=== PATIENT | female | born 1980 | race Two or more races ===

== ENCOUNTER 2025-01-22 22:15 | Emergency (ER) | payer MEDICAID, SELFPAY ==
[2025-01-22 22:16] VITALS: BMI 39.2
[2025-01-22 22:55] VITALS: BP 117/74; PULSE 84; RESP 18; TEMP 36.7; O2SAT 100
--- NOTE | 2025-01-22 23:11 | PD.EDRME ---
Rapid Medical Screening Exam RME Arrival date/time: 01/22/25 22:15 This is a case of 44-year-old female who came into the emergency room due to generalized weakness and fatigue patient denies any chest pain shortness of breath patient states that she needs blood transfusion because her hemoglobin is 6.5 Chief Complaint: General Adult/Misc Complain Time Seen by Provider: 01/22/25 22:19 Vital signs: Vital Signs Temperature 98.1 F 01/22/25 22:55 Pulse Rate 84 01/22/25 22:55 Respiratory Rate 18 01/22/25 22:55 Blood Pressure 117/74 01/22/25 22:55 Pulse Oximetry (%) 100 01/22/25 22:55 Oxygen Delivery Method Room Air 01/22/25 22:55
[2025-01-22 23:46] LABS: Basophils # (Auto) 0.1 Thou/mm3 (0.0-0.2); Basophils % (Auto) 1 % (0-2.5); Eosinophils # (Auto) 0.5 Thou/mm3 (0.0-0.5); Eosinophils % (Auto) 5 % (0-10); Hematocrit 22.8 % (36.0-46.0); Immature Granulocytes % (Auto) 0 % (0-0); Immature Granulocytes Auto 0.03 Thou/mm3 (0.00-0.00); Lymphocytes # (Auto) 2.4 Thou/mm3 (1.0-4.8); Lymphocytes % (Auto) 27 % (10-50); Mean Corpuscular HGB Conc 29.4 g/dl (31.0-37.0); Mean Corpuscular Hemoglobin 18.1 pg (25.0-35.0); Mean Corpuscular Volume 62 fL (80-100); Monocytes # (Auto) 0.7 Thou/mm3 (0.0-0.8); Monocytes % (Auto) 8 % (0-12); Neutrophils # (Auto) 5.3 Thou/mm3 (1.8-7.7); Neutrophils % (Auto) 59 % (37-80); Nucleated Red Blood Cell % 0 /100 WBC (0); Platelet Count 318 Thou/mm3 (140-440); RDW Standard Deviation 42.2 fL (36.4-46.3); Red Blood Count 3.71 Miln/mm3 (4.00-5.20)
[2025-01-22 23:52] LABS: Hemoglobin 6.7 g/dL (12.0-16.0)
[2025-01-23] VITALS (13 sets, daily range): BP systolic 98–125; BP diastolic 61–88; PULSE 58–99; RESP 14–24; TEMP 36.3–37.1; O2SAT 96–100
[2025-01-23 00:04] LABS: Alanine Aminotransferase 14 U/L (10-49); Albumin/Globulin Ratio 1.3 (1.2-2.2); Alkaline Phosphatase 82 U/L (46-116); Anion Gap 6 (7-16); Aspartate Amino Transferase 21 U/L (0-34); BUN/Creatinine Ratio 12 Ratio (12-20); Bilirubin,Total 0.3 mg/dL (0.3-1.2); Blood Urea Nitrogen 11 mg/dL (9-23); Calcium 8.3 mg/dL (8.3-10.6); Calcium (Corrected) 8.3 mg/dL (8.5-10.1); Carbon Dioxide 28.2 mMol/L (20.0-31.0); Chloride 105 mMol/L (98-107); Creatinine (Component) 0.9 mg/dL (0.6-1.3); Estimated Creatinine Clearance 102.4 mL/min (>60); Glucose 98 mg/dL (74-106); Osmolality,Calculated 276 (275-295); Potassium 3.5 mMol/L (3.4-5.1); Sodium 139 mMol/L (136-145); Troponin I < 0.002 ng/mL (0.0-0.045); eGFR > 60 See Note
[2025-01-23 00:37] LABS: Partial Thromboplastin Time 24.2 Seconds (22.0-36.0); Prothrombin Time 10.7 Seconds (9.0-12.2)
[2025-01-23 03:29] LABS: Path Review Blood Smear Sent to Pathologist
--- NOTE | 2025-01-23 04:11 | PD.EDADULT ---
ED General RME/HPI General Chief complaint: General Adult/Misc Complain Stated complaint: LOW H&H 6.3 Time Seen by Provider: 01/22/25 22:19 Arrival date/time: 01/22/25 22:15 RME / HPI RME / HPI narrative: 01/22/25 22:15 This is a case of 44-year-old female who came into the emergency room due to generalized weakness and fatigue patient denies any chest pain shortness of breath patient states that she needs blood transfusion because her hemoglobin is 6.[address] Gonzales?s Main ED Evaluation: 44yo female presents to the ED for a chief complaint of generalized weakness. Patient states she was seen at her PCP's office today and had labwork done due to her appearing pale and was told to come in due to her hemoglobin being low. Patient states she feels fatigued quite frequently . She endorses having regular heavy menses, reporting her LMP was last month. Patient reports associated chills. She denies any fever, N/V, dizziness or any other associated symptoms. Related Data Previous Rx's ?Medication ?Instructions ?Recorded naproxen 500 mg tablet (Naprosyn) 500 mg PO BID PRN pain #30 tabs 09/03/20 clindamycin HCl 150 mg capsule 450 mg (3 x 150 mg) PO TID #30 caps 09/08/20 cephalexin 500 mg capsule 500 mg PO BID #14 caps 05/14/21 doxycycline hyclate 100 mg tablet 100 mg PO BID #14 tabs 05/14/21 ibuprofen 800 mg tablet 800 mg PO Q6H PRN pain #10 tabs 05/14/21 Allergies Allergy/AdvReac Type Severity Reaction Status Date / Time No Known Allergies Allergy Verified 09/04/22 13:30 Review of Systems Review of Systems Systems Reviewed: All systems reviewed, normal except as documented Past Medical History Past Medical History CARDIAC: Negative Congestive Heart Failure RESPIRATORY: Negative Chronic Obstructive Pulmonary Disease (COPD) GENITOURINARY: Negative Renal Disease ENDOCRINE: Negative Diabetes Mellitus Type 1 or Diabetes Mellitus Type 2 HEMATOLOGIC: Positive Anemia OTHER HISTORY: Positive Blood Transfusions Social History SMOKING STATUS: Never smoker ED Exam Narrative Physical exam: GENERAL APPEARANCE: AxOx4, generally well-appearing, no acute distress. HEENT: NC, AT. MMM. EOMI, clear conjunctiva, oropharynx clear. NECK: Supple without lymphadenopathy. No stiffness or restricted ROM. HEART: Normal rate and regular rhythm, normal S1/S1, no m/r/g LUNGS: CTAB, moving air well. No crackles or wheezes are heard. ABDOMEN: Soft, nontender, nondistended with good bowel sounds heard. BACK: No midline C/T/L spine pain or deformity, No CVAT, no obvious deformity. EXTREMITIES: Without cyanosis, clubbing or edema. MUSCULOSKELETAL: FROM of all major joints, no chest tenderness NEUROLOGICAL: Grossly nonfocal. Alert and oriented, moving all 4 extremities. CN not formally tested but appear grossly intact. Skin: Warm and dry without any rash. Pallor. Course Quality Measures none Orders Category Date Time Status Transfuse,blood/blood products NOW Care 01/23/25 02:33 Active CBC Stat Lab 01/22/25 23:27 Completed CMP [Comprehensive Metabolic Panel] Stat Lab 01/22/25 23:27 Completed PTT [Partial Thromboplastin Time] Stat Lab 01/22/25 23:27 Completed Path Review Blood Smear Stat Lab 01/22/25 23:27 Completed Prothrombin Time with INR Stat Lab 01/22/25 23:27 Completed Troponin I Stat Lab 01/22/25 23:27 Completed Type and Screen Stat Lab 01/22/25 23:27 Results prbc [Red Blood Cells] Stat Lab 01/23/25 02:33 Results Vital Signs Vital signs: Vital Signs Temperature 98.1 F 01/22/25 22:55 Pulse Rate 84 01/22/25 22:55 Respiratory Rate 18 01/22/25 22:55 Blood Pressure 117/74 01/22/25 22:55 Pulse Oximetry (%) 100 01/22/25 22:55 Oxygen Delivery Method Room Air 01/22/25 22:55 Discharge Plan Plan Patient Disposition: HOME (Self Care) Prescriptions/Referrals Prescriptions/Med Rec: No Action clindamycin HCl 150 mg capsule 450 mg PO TID Qty: 30 0RF ibuprofen 800 mg tablet 800 mg PO Q6H PRN (Reason: pain) Qty: 10 0RF cephalexin 500 mg capsule 500 mg PO BID Qty: 14 0RF doxycycline hyclate 100 mg tablet 100 mg PO BID Qty: 14 0RF naproxen [Naprosyn] 500 mg tablet 500 mg PO BID PRN (Reason: pain) Qty: 30 0RF Problem List Clinical Impression: Anemia, DUB (dysfunctional uterine bleeding) Patient/Caregiver Discharge Instructions Education Materials: ED Anemia Type Not Specified, ED Dysfunctional Uterine Bleeding Additional Instructions: Follow-up your primary doctor in 2-3 days for recheck. You can return to the emergency department sooner if symptoms worsen or for any new or concerning issues. Print Language: [place]arag[place] Stand Alone Forms: Lilian Award Info., Patient Portal Info Letter MDM Narrative MDM hospital course (for use when minimal MDM required): Scribe Attestation: 01/23/25 Mariama Mendez am scribing for and in the presence of Dr. Gonzales. Clinical Information Provided by: patient Medical Records reviewed [facility] (Per chart review, patient was seen here on 09/04/22 for anemia.) Labs/Rad/Tests considered, not ordered None Chronic Illness/Social Conditions Explain: History of anemia Labs Labs: Interpreted by me Lab(s) Interpretation(s): HnH is low at 6.7/22.8, Platelets are normal, PT and INR are normal, PTT is normal, CMP is normal, Troponin is normal. Medication Administration(s) 2U pRBCs Diagnosis Differential Diagnosis ED Complaint MDM: DUB, chronic anemia, GI bleed
--- NOTE | 2025-01-23 04:45 | PC.NURSE ---
Assumed patient care at this time
--- NOTE | 2025-01-23 10:26 | PC.NURSE ---
PATIENT AWAKE AND REQUESTING FOOD. PATIENT DENIES COMPLAINT OF PAIN AT THIS TIME. SANDWICH AND JUICE GIVEN.
== END 2025-01-23 12:06 | disposition home or self-care (01) ==
LOC: SERX 01-23 05:52
PROVIDERS: Nurse Practitioner Family; Emergency Provider Emergency Medicine; PCP Family Medicine
DX: D64.9 Anemia, unspecified (principal); N93.8 Other specified abnormal uterine and vaginal bleeding
CPT/HCPCS: 36415; 36430; 80053; 84484; 85025; 85610; 85730; 86850; 86900; 86901; 86921; 86922; 99285; P9016

== ENCOUNTER → 2025-01-29 | Outpatient (CLI) | payer MEDICAID, SELFPAY ==
--- NOTE | 2025-01-29 15:27 | XR_ITS ---
Examination: Venous duplex lower extremity sonogram, bilateral. Date and time of exam: January 29, 2025 1829 hours INDICATIONS: Bilateral leg swelling and pain beginning 6 months ago Technique: Multiple sonographic images of the deep venous system have been obtained. B-mode/2-D grayscale imaging of vascular structures and Doppler spectral analysis (waveforms) and color performed Both legs are examined. Findings: Deep venous systems do not demonstrate abnormal echogenicity. All visualized deep veins exhibit compressibility. All visualized deep veins exhibit augmentation. 3.2 cm left popliteal cyst Impression: Negative for deep vein thrombosis
== END | disposition home or self-care (01) ==
PROVIDERS: PCP Registered Nurse General Practice; Referring Provider Registered Nurse General Practice; Visit Provider Registered Nurse General Practice
DX: R60.0 Localized edema (principal)
CPT/HCPCS: 93970